=== PATIENT | female | born 1995 | race Caucasian/White ===

== ENCOUNTER 2019-08-10 18:54 | Inpatient (IN) | payer BC ==
[~2019-08-10 18:54] MED LIST: Iopamidol-370 76% 500 ML 1 ML ONE
[2019-08-10 19:29] LABS: Hemoglobin 12.5 g/dL (12.0-16.0); Mean Corpuscular HGB CONC 35.4 g/dL (32.0-36.0); Mean Corpuscular Volume 90.3 fL (78.0-98.0); Mean Platelet Volume 7.7 fL (7.4-10.4); Platelet Count 276 thou/uL (130-400); RBC Distribution Width 11.4 % (11.5-14.5); Red Blood Cell (RBC) Count 3.92 mill/uL (4.20-5.40); White Blood Cell (WBC) Count 27.2 thou/uL (4.8-10.8)
--- NOTE | 2019-08-10 19:33 | RAD ---
Chest one view HISTORY: Dyspnea. FINDINGS: Cardiac silhouette and pulmonary vasculature are unremarkable. Mediastinum is midline. No c onfluent airspace consolidation or evidence of pneumothorax. IMPRESSION: Normal exam.
[2019-08-10 19:49] LABS: ALT (SGPT) 11 U/L (8-55); AST (SGOT) 14 U/L (5-34); Albumin 4.2 g/dL (3.5-5.0); Alkaline Phosphatase 57 U/L (40-110); Anion Gap 15 mmol/L (10-20); BUN (Urea Nitrogen) 4 mg/dL (7.0-18.7); Bilirubin, Total 0.7 mg/dL (0.2-1.2); Calc. Creatinine Clearance 0 mL/min (70-130); Calcium 9.8 mg/dL (7.8-10.44); Carbon Dioxide 19 mmol/L (22-29); Chloride 101 mmol/L (98-107); Estimated GFR-MDRD Greater than 90; Globulin 3.2 g/dL (2.4-3.5); Glucose 89 mg/dL (70-105); Potassium 3.4 mmol/L (3.5-5.1); Protein, Total 7.4 g/dL (6.0-8.3); Sodium 132 mmol/L (136-145)
[2019-08-10 19:53] LABS: Band 16 % (5-11); Lymphocytes 6 % (21-51); MDiff Complete? YES; Monocytes 1 % (0-10); Neutrophil 77 % (42-75); Platelet Morphology Comment Appears Adequate; RBC Morphology Normal
--- NOTE | 2019-08-10 20:13 | CT ---
CT arteriogram chest with IV contrast and 3-D imaging HISTORY: Chest pain. Tachycardia. FINDINGS: There is good contrast opacification of the pulmonary arteries and thoracic aorta with bovi ne origin of the great vessels at the aortic arch. Small amount of residual thymus within the upper mediastinum. No adenopathy. No pleural fluid or pneumothorax. IMPRESSION: No acute abnormalities are demonstrated.
[2019-08-10] MEDS ORDERED: Acetaminophen 500 MG TAB ONE (20:25)
[2019-08-10 21:07] LABS: Free T4 (Free Thyroxine) 0.86 ng/dL (0.70-1.48); Thyroid Stimulating Hormone 0.47 uIU/mL (0.35-4.94)
[2019-08-10 21:33] LABS: Bilirubin Negative (Negative); Blood, Urine Negative (Negative); Clarity Clear (Clear); Glucose, Urine (Dipstick) Normal (Negative); Leukocyte 75 Leu/uL (Negative); Nitrite Negative (Negative); Protein, Urine (Dipstick) Negative (Neg-Trace); RBC/HPF 0-3 HPF (0-3); Squamous Epithelial 0-3 HPF (0-3); Urobilinogen Normal mg/dL (Less than 2); WBC/HPF 0-3 HPF (0-3)
[2019-08-10 21:41] LABS: Amphetamine Not Detected (NotDetected); Bacteria/HPF Rare-Few HPF (None Seen); Barbiturates Screen Not Detected (NotDetected); Benzodiazepine Screen Not Detected (NotDetected); Cocaine Metabolite Screen Not Detected (NotDetected); Medtox Control Line Valid? VALID (VALID); Medtox Reader # READER 4; Methadone Not Detected (NotDetected); Methamphetamine Not Detected (NotDetected); Opiate Screen Not Detected (NotDetected); Oxycodone Screen Not Detected (NotDetected); Phencyclidine (PCP) Not Detected (NotDetected); THC/Cannabinoid Screen Not Detected (NotDetected); Tricyclic Screen Not Detected (NotDetected)
[2019-08-10] MEDS ORDERED: Piperacillin/Tazobactam 4.5 GM VIAL ONE (22:04)
--- NOTE | 2019-08-10 22:51 | ULT ---
Obstetric sonogram HISTORY: Second trimester gestation. Fever. FINDINGS: Single intrauterine gestation in cephalic presentation. Four-chamber heart motion at 165 bp m. Grade 0 placenta is anterior. spine and kidneys are intact as visualized. Cervix is closed and 3.7 cm. No evidence of placental abruption. Measurements are as follows: Biparietal diameter 20 weeks 4 days. Head circumference 19 weeks 4 days. Abdominal circumference 19 weeks 2 days. Femur length 20 weeks 4 days. Estimated date of delivery based on today's sonogram 12/28/2019. Hadlock 97 percentile. IMPRESSION: Single intrauterine gestation. Estimated gestational age 20 weeks 0 days. No abnormalitie s are demonstrated.
--- NOTE | 2019-08-10 23:00 | HP ---
TIME: 2224 LOCATION: ER bed 8. TIME OF EVALUATION: About 2204 until 2219. REASON FOR ADMISSION: Fever of unknown origin/possible early sepsis. This is a patient of Dr. Maradiaga. HISTORY OF PRESENT ILLNESS: This is a 23-year-old , G1, P0, at 18 weeks and 5 days by her EDC, who states that she has been feeling some on and off chest pain for most of the day with some shortness of breath. She came in today because of increased chest discomfort. I was called because the ER workup was negative, except for a white blood cell count of 27, with bandemia. On admission to the ER, her temperature was 100.4, but her heart rate initially was 160 before IV hydration. She had a CT angio which was negative. Her cardiac enzymes are negative. Chest x-ray is negative. Troponin is negative. Her BNP is normal. She also has urine, which is unremarkable, except for some ketones. Her lactate on admission was 2.7. Flu swab was also checked and is negative. Chest x-ray is negative. She denies any complications at this time. She denies a history of autoimmune conditions and there is no family history of lupus or of similar conditions. OB HISTORY: She is G1, P0. ALLERGIES: CODEINE. 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 PAST MEDICAL HISTORY: Otherwise negative. PHYSICAL EXAMINATION: VITAL SIGNS: Her heart rate is now 130, O2 saturation about 98%. She is currently afebrile, but this is after some IV fluids. GENERAL: She looks uncomfortable but is in no acute distress or dyspnea. ABDOMEN: Soft and nontender on my exam. There is no uterine tenderness. PELVIC EXAM: Currently deferred. EXTREMITIES: There are no palpable cords in the lower extremities. CHEST: Otherwise clear. DATA: I was present during the OB ultrasound, which was being performed, which shows grossly normal fluid, and normal closed and long cervix, and good activity. Final report is pending. ASSESSMENT: A 23-year-old G1, P0, at 18 weeks and 5 days with FUO (fever of unknown origin). Lactate is slightly elevated at 2.7. TSH was negative as was urine toxicology. PLAN: 1. Due to the fever of unknown origin of 100.4 on admission, an elevated lactate, with leukocytosis with initial white blood cell count of 27, we are admitting her per protocol for IV Zosyn and vanc. 2. No evidence of PE or acute pulmonary process. 3. We are awaiting a set of blood cultures before antibiotics. 4. If her tachycardia does not resolve, we will consider Cardiology consult after at least 24 hours of antibiotic. 5. Her EKG shows sinus tach with no abnormal changes. 6. No evidence of flu as flu swab is negative. 7. If her temperature does not decrease, we will have to consider autoimmune/possible connective tissue new diagnosis, but we will await resolution before we go down that avenue. 8. Dr. Maradiaga has been notified by me and we will assume care for now. Job ID: [id number]
--- NOTE | 2019-08-10 23:00 | PDOC.EVN ---
Event Note - Event Note Event Note: During OB sono informal sweep of the RUQ revealed normal GB image
[2019-08-10] MEDS ORDERED: Ketorolac Tromethamine 30 MG/ML VIAL ONE (23:03)
--- NOTE | 2019-08-10 23:36 | PRG ---
DATE OF SERVICE: 08/10/2019 SUBJECTIVE: In brief, this is just a clarification on my H and P. I did evaluate the patient at bedside and reviewed in detail the workup that has been done so far with the patient and reviewed that care with the patient's mother who was at bedside. I discussed that we would give her 24-48 hours of antibiotics and if she is not clinically better. We will have to pursue other possibilities like viral infections, autoimmune conditions, etc. I have just ordered an MANOHAR screen just to get that in process. Blood cultures are still pending and antibiotics will be begun shortly. Right now, I have a fever without a clear source. I have also examined the patient's abdomen and trunk and I do not see any abnormal lesions. I do not suspect chorio as her uterus is soft and nontender. Job ID: [id number]
[2019-08-11] LABS: Lactic Acid 1.5 mmol/L (0.5-2.2)
[2019-08-11] MEDS: Lactated Ringer's 1,000 ML IV SCH ×4 (01:15→21:49)
[2019-08-11 02:41] VITALS: BMI 32.3
[2019-08-11] MEDS: Piperacillin/Tazobactam 3.375 GM in Sodium Chloride 0.9% 100 ML IVPB SCH ×3 (04:38→18:14)
[2019-08-11] MEDS: Acetaminophen 500 MG TAB PO PRN ×3 (04:45→18:14)
[2019-08-11] MEDS ORDERED: Vancomycin HCl 1 GM in Premix Bag 1 BAG IVPB SCH (06:00)
--- NOTE | 2019-08-11 06:33 | PDOC.EVN ---
Event Note - Event Note Event Note: HD1 Admit 08/10/19 Patient sleeping called for maternal Temp of 102.8 at 0500 Respiratory panel pending I have a repeat CBC pending for this AM. Blood cultures pending. ABX: Tania and Nikunj for FUO/sepsis protocol. Continue ABX for now. If not better after 24 hrs-48 hrs of ABX, consider ID evmarietta. She does have a partner who developed similar SXS this AM as well...his temp was 103 in the ER but he was not seen by his choice.
[2019-08-11 09:09] LABS: Hemoglobin 11.1 g/dL (12.0-16.0); Mean Corpuscular HGB CONC 35.8 g/dL (32.0-36.0); Mean Corpuscular Hemoglobin 32.7 pg (27.0-31.0); Mean Corpuscular Volume 91.5 fL (78.0-98.0); Mean Platelet Volume 7.9 fL (7.4-10.4); Platelet Count 207 thou/uL (130-400); RBC Distribution Width 11.4 % (11.5-14.5); Red Blood Cell (RBC) Count 3.39 mill/uL (4.20-5.40)
--- NOTE | 2019-08-11 09:14 | PDOC.EVN ---
Event Note - Event Note Event Note: 23 yo G1 @18.5wks admitted for fever without a source, on vanc and zosyn with blood and urine cx pending. CTA, cxr, flu all negative. Abd sono negative for acute cholecystitis. Picture not consistent with appendicitis or chorio. Respiratory viral panel negative. Fevered this morning to 103F. Down to 101F after tylenol. Pt still currently tachycardic to 120s. Alert and oriented x 3. No murmur heard on exam. Added monospot and strep swab this morning. Will continue broad spectrum abx and fluid resuscitation. Consider ID consult if blood cx negative. Addendum - Attending - Attending Attestation Date/Time: 08/11/1917 I personally evaluated the patient and discussed the management with Dr. Almanza. Discussed in detail with Dr. Gannon examined with him. 23 yo WF at 18 weeks with FUO. Denies recent travel. SO has fever as well. Workup so far is negative with BC pending. Abdominal exam is benign and not c/w chorioamnionitis. Continue on Zosyn and Vancomycin for now. I agree with the History, Examination, Assessment and Plan documented above.
[2019-08-11 09:16] LABS: MONO NEGATIVE CONTROL ZONE White (Negative) (White); MONO POSITIVE CONTROL Pink Line (Positive) (PINK/RED); Mononucleosis NEGATIVE (NEGATIVE)
[2019-08-11 09:35] LABS: Band 5 % (5-11); Lymphocytes 9 % (21-51); MDiff Complete? YES; Monocytes 4 % (0-10); Neutrophil 82 % (42-75); Platelet Morphology Comment Appears Adequate; Vacuoles SLIGHT
[2019-08-11] MEDS: Vancomycin HCl 1 GM in Premix Bag 1 BAG IVPB SCH ×2 (10:05→21:49)
[2019-08-11] MEDS: Prenatal Vitamin 1 TAB PO SCH (10:05)
--- NOTE | 2019-08-11 12:08 | PDOC.EVN ---
Event Note - Event Note Event Note: Fever to 103.3F. Monospot negative. Group A strep swab negative. A&Ox3. However , considering an LP. Abdominal exam, pulm exam, and cardiac exam benign except for tachycardia. Continue vanc/zosyn. Blood and urine cx pending. Consulted ID. Will await recommendations. Tylenol prn fever. Addendum - Attending - Attending Attestation Date/Time: 08/11/19 1216 I personally evaluated the patient and discussed the management with Dr. Almanza. CTSP with temp to 103+. [place] and strep screens are negative. Tylenol and fluid bolus ordered. I spoke with Dr. Ragland with ID personally, he will see the pt. this afternoon. I agree with the History, Examination, Assessment and Plan documented above.
[2019-08-11] MEDS ORDERED: Lactated Ringer's 1,000 ML IV SCH (12:45)
--- NOTE | 2019-08-11 23:57 | CON ---
DATE OF CONSULTATION: 08/11/2019 REASON FOR CONSULTATION: Chest pain with fever. HISTORY OF PRESENT ILLNESS: A 23-year-old, G1, P0 at 18 weeks of the delivery date, [place] and lives with her fiance and apparently over the past 48 hours, both have developed fever with chest pain associated with some dyspnea, some headaches when the temperatures go up. No sore throat or dental pain. No back pain. The chest pain is localized to the central lower area of the chest. It seems to increase with deep breathing and also with changing positions of the body for example sitting up or turning from the left to the right decubitus and so forth. The abdomen is not tender. There is no diarrhea or genitourinary symptoms. No joint symptoms or skin disorder. No neurological symptoms. MEDICAL HISTORY: Otherwise negative. This is her first gestation. ALLERGIES: CODEINE, MOSTLY GASTROINTESTINAL SYMPTOMS. FAMILY HISTORY: The fifuentese has been sick with similar febrile illness, fairly similar symptoms with the same temporal onset. He was documented to have temperature of 103 in one of the local ERs and tested negative for influenza A and B. CURRENT MEDICATIONS: 1. Zosyn. 2. Vancomycin. 3. P.r.n. medications. PHYSICAL EXAMINATION: VITAL SIGNS: T-max 103 earlier today, she is now 101.2. Blood pressure 113/58, pulse 97, respirations 14, O2 saturation 100. SKIN: Normal. The patient has peripheral IV access and she is voiding in the toilet. No lymphadenopathy. HEENT: Ocular movements conjugate. Oral cavity normal. NECK: Supple. LUNGS: Symmetric. Clear breath sounds. HEART: S1 and S2 regular rate with loud S4. No murmurs. No tenderness on palpation of the sternum or chest area. No abdominal pain. No distention. No organomegaly or bladder distention. No ascites. No joint inflammatory activity. Moves extremities equally. Cognitive function appears to be intact. The patient appears to be apprehensive. LABORATORY DATA: White cell count is 27, down to 22 at this time. Hemoglobin 11, platelets 207,000 with 82% neutrophils, bands were 16 on admission and now down to 5%, 9% lymphocytes, 4% monocytes. Peripheral smear with smudge cells. Platelet morphology appears normal. Chemistry; sodium 132, creatinine 0.57. Liver profile normal. Albumin 4.2. TSH 0.47. Urinalysis with 0-3 wbc's, protein negative, negative toxicology, serology with negative mono screen. CT angiogram of the chest, no abnormalities noted. Chest x-ray, normal exam. ASSESSMENT: 1. Gestation 18 weeks. 2. Acute onset of chest pain with fever, which prompted admission. Similar symptoms in the fiance documented in the same setting, temperature up to 103, respiratory virus PCR panel negative. Blood cultures are pending. DISCUSSION: The differential diagnosis includes pericarditis versus Bornholm syndrome secondary to Coxsackie A or B, early pneumonia which has not yet been identified on radiological studies appears to be less likely in view of the normal clinical exam. Bacterial pericarditis, bacteremia from a not yet disclosed site , intraabdominal inflammatory process appears to be less likely. Pancreatitis is unlikely. Esophageal process also not likely in view of the familial distribution of the symptoms and lack of pain upon swallowing. An autoimmune process is unlikely in view of similar syndrome in her fiance. We will check echocardiogram. EKG has been ordered, but not performed yet. Continue antimicrobial therapy. Check Coxsackie antibodies and EBV serology, as well as CMV serology. Job ID: [id number] [facility]
[2019-08-11] MEDS ORDERED: Piperacillin/Tazobactam 3.375 GM in Sodium Chloride 0.9% 100 ML IVPB SCH (23:59)
[2019-08-12] MEDS: Piperacillin/Tazobactam 3.375 GM in Sodium Chloride 0.9% 100 ML IVPB SCH ×3 (02:21→15:03)
[2019-08-12] MEDS: Acetaminophen 500 MG TAB PO PRN (05:00)
[2019-08-12 05:47] LABS: #Eosinphils 0.1 thou/uL (0.0-0.7); #Lymphocytes 1.5 thou/uL (1.20-3.40); #Monocytes 0.8 thou/uL (0.11-0.59); #Neutrophils 14.1 thou/uL (1.40-6.50); %Basophils 0.2 % (0.0-1.0); %Eosinophils 0.4 % (0.0-10.0); %Lymphocytes 8.8 % (21.0-51.0); %Monocytes 4.6 % (0.0-10.0); %Neutrophils 85.9 % (42.0-75.0); Hemoglobin 10.3 g/dL (12.0-16.0); Mean Corpuscular HGB CONC 35.6 g/dL (32.0-36.0); Mean Corpuscular Hemoglobin 33.1 pg (27.0-31.0); Mean Corpuscular Volume 92.8 fL (78.0-98.0); Mean Platelet Volume 7.7 fL (7.4-10.4); Platelet Count 222 thou/uL (130-400); RBC Distribution Width 11.7 % (11.5-14.5); Red Blood Cell (RBC) Count 3.12 mill/uL (4.20-5.40); White Blood Cell (WBC) Count 16.4 thou/uL (4.8-10.8)
--- NOTE | 2019-08-12 06:34 | PDOC.EVN ---
Event Note - Event Note Event Note: 19 weeks. Zosyn/Vanc #2 Feeling some better this AM. Dpaq=861/ Tn= 99.1 Exam is unchanged, nonfocal. Consult by Dr. Ragland greatly appreciated. ECHO, enterovirus and Coxsackie ordered. Cont. present ABX.
[2019-08-12 08:37] LABS: Ref Lab Test Ordered COXSACKIE ABS; Reference Lab Name LABCORP
[2019-08-12] MEDS ORDERED: Sodium Chloride 0.9% 10 ML ONE (09:21)
[2019-08-12] MEDS: Vancomycin HCl 1 GM in Premix Bag 1 BAG IVPB SCH (09:56)
[2019-08-12] MEDS: Prenatal Vitamin 1 TAB PO SCH (09:56)
--- NOTE | 2019-08-12 13:01 | PDOC.EVN ---
Event Note - Event Note Event Note: Patient in shower this AM when I went to see her. I discussed case with her RN. AM CBC with decreasing WBC. ABX still in use. ID following. Echo for today
[2019-08-12] MEDS: Lactated Ringer's 1,000 ML IV SCH ×3 (14:36→22:06)
--- NOTE | 2019-08-12 15:32 | PRG ---
DATE OF SERVICE: 08/12/2019 SUBJECTIVE: Feeling better, almost back to normal. A little bit of cough, but no sputum production. Eating well. No vomiting. No diarrhea. No abdominal pain. OBJECTIVE: VITAL SIGNS: Temperature is pretty much normal now. Other vital signs are normal. LUNGS: Clear. HEART: S1 and S2. Regular rate. ABDOMEN: Soft, not distended or tender. LABORATORY DATA: White cell count 16.4, hemoglobin 10, and platelets 222 with 85% neutrophils. The echocardiogram did not show any major abnormalities. Lactic acid 1.5. All the cultures are negative thus far. ASSESSMENT AND DISCUSSION: Eighteen weeks gestation with acute onset of myalgias, chest pain, and fever, which also were present in her fiancee, suggestive of a viral illness. Clinical improvement with negative cultures thus far and we will go ahead and discontinue antimicrobial therapy. If she remains stable, then consider discharge planning. Job ID: [id number]
[2019-08-12 17:50] LABS: ANA Symphony (Qualitative) Negative (Negative); ANA Symphony (Quantitative) 0.2 Ratio (< 0.7 Negative); dsDNA IgG Antibody Less than 0.5 IU/mL (<10 Negative)
--- NOTE | 2019-08-12 19:27 | PDOC.EVN ---
Event Note - Event Note Event Note: Lab check: Blood CX NGTD; MANOHAR screen was negative Currently afebrile and pulse decreasing towards normal
[2019-08-13] MEDS: Lactated Ringer's 1,000 ML IV SCH (05:24)
[2019-08-13 06:05] LABS: #Eosinphils 0.3 thou/uL (0.0-0.7); #Monocytes 0.8 thou/uL (0.11-0.59); #Neutrophils 7.9 thou/uL (1.40-6.50); %Basophils 0.4 % (0.0-1.0); %Eosinophils 2.8 % (0.0-10.0); %Lymphocytes 18.1 % (21.0-51.0); %Neutrophils 71.7 % (42.0-75.0); Hemoglobin 10.6 g/dL (12.0-16.0); Mean Corpuscular HGB CONC 35.2 g/dL (32.0-36.0); Mean Corpuscular Hemoglobin 32.7 pg (27.0-31.0); Mean Platelet Volume 7.4 fL (7.4-10.4); Platelet Count 213 thou/uL (130-400); RBC Distribution Width 11.6 % (11.5-14.5); Red Blood Cell (RBC) Count 3.23 mill/uL (4.20-5.40)
--- NOTE | 2019-08-13 06:51 | PDOC.HOSPP ---
- Subjective Encounter Date: 08/13/19 (HD3) Encounter Time: 07:00 Subjective: Feels better - Objective Vital Signs & Weight: Vital Signs (12 hours) Temp Pulse Resp BP Pulse Ox 08/13/19 04:22 98.0 F 89 22 H 120/67 96 08/13/19 00:24 98.0 F 95 24 H 110/66 95 08/12/19 20:13 98.1 F 103 H 24 H 119/68 97 Weight Weight 188 lb 3.2 oz I&O: 08/11/19 08/12/19 08/13/19 06:59 06:59 06:59 Intake Total 834 4518 1800 Output Total 975 8985 1500 Balance -141 2043 300 Result Diagrams: 08/13/19 05:50 08/10/19 19:23 Radiology Reviewed by me: Yes Hospitalist ROS - Medication Medications: Active Medications Generic Name Dose Route Start Last Admin Trade Name Freq PRN Reason Stop Dose Admin Acetaminophen 1,000 mg 08/10/19 22:02 08/12/19 05:00 Tylenol PO 1,000 mg Q6H PRN Administration Moderate to Severe Pain (6-10) Lactated Ringer's 1,000 mls @ 125 mls/hr 08/10/19 22:15 08/13/19 05:24 Lactated Ringer's IV Not Given .Q8H JESSICA Multivit/Folic Acid/Iron 1 tab 08/11/19 09:00 08/12/19 09:56 Vitamin PO 1 tab DAILY JESSICA Administration Now off Zosyn and vanc since yesterday PM - Exam Neck: supple Heart: no murmur Gastrointestinal: soft Extremities: no cyanosis, no clubbing, no edema Neurological: no focal deficits Musculoskeletal: normal tone Psychiatric: normal affect Hosp A/P (1) Second trimester Code(s): Z34.92 - ENCNTR FOR SUPRVSN OF NORMAL PREG, UNSP, SECOND TRIMESTER Status: Acute (2) Fever Code(s): R50.9 - FEVER, UNSPECIFIED Status: Acute - Plan clinically improved. Suspect viral. all labs and W/U negative...WBC negative. Likely home to with outpatient follow up
--- NOTE | 2019-08-13 07:11 | PDOC.EVN ---
Event Note - Event Note Event Note: Patient seen at bedside. Clinically well. OK for DC to home today. See dictation done.
--- NOTE | 2019-08-13 07:42 | DIS ---
DATE OF ADMISSION: 08/11/2019 DATE OF DISCHARGE: 08/13/2019 ADMISSION DIAGNOSES: 1. 18- to 19-week . 2. Primigravida. 3. Fever of unknown origin. 4. Suspected viral illness. PROCEDURE PERFORMED: 1. Obstetrical ultrasound. 2. Maternal cardiac echocardiogram. 3. Blood cultures. 4. Urine culture. 5. Monospot testing. 6. Coxsackie virus testing (pending). 7. CT angio of the chest. HOSPITAL COURSE: In brief, this patient is a 23-year-old primigravida, who was admitted by me on the with high fever with a T-max of close to 103. Her partner had similar symptoms. She was admitted for fever of unknown origin with no clinical evidence of chorioamnionitis. She was 18 weeks and 5 days on admission. She was placed on vancomycin and Zosyn for broad coverage, and Dr. Ragalnd was consulted as she continued to have some occasional high temperatures on hospital day 1. Dr. Ragland recommended testing for Coxsackie virus. It is important to note that due to the chest pain that she initially presented with she even had a CT angio, which was negative. The patient defervesced and all the workup was negative including blood cultures and urine cultures. It was felt by ID that the patient had a viral illness, possible Coxsackie. Decision was made to send her home on August 13, 2019, after I evaluated the patient at bedside. Next, on my bedside note, I find the patient to be in no clinical distress with no dyspnea. She is looking well. There is no uterine tenderness on my abdominal exam. DISCHARGE MEDICATIONS: Include none. FOLLOWUP: She is to follow up with Dr. Mardaiaga to check the Coxsackie virus results, and she has a followup on . Job ID: [id number]
[2019-08-13 07:44] VITALS: BP 137/83; TEMP 98.6
--- NOTE | 2019-08-13 08:09 | PDOC.EVN ---
Event Note - Event Note Event Note: Echo to follow up results as outpatient as clinically well
== END 2019-08-13 09:38 | disposition home or self-care (01) | DRG 833 ==
LOC: ERS 18:54 → 3SW 08-11 00:41
PROVIDERS: ADMIT Obstetrics & Gynecology; ATTEND Obstetrics & Gynecology
DX: O98.512 Other viral diseases complicating pregnancy, second trimester (principal); B34.9 Viral infection, unspecified; Z3A.18 18 weeks gestation of pregnancy; O26.892 Other specified pregnancy related conditions, second trimester; M79.10 Myalgia, unspecified site; R07.9 Chest pain, unspecified; B97.11 Coxsackievirus as the cause of diseases classified elsewhere
CPT/HCPCS: 36415; 71045; 71275; 76805; 80053; 80306; 81003; 81015; 83605; 83880; 84439; 84443; 84481; 84484; 85025; 86038; 86225; 86308; 87040; 87081; 87086; 87430; 87498; 87633; 87804; 93005; 93306; J1885; J2543; J3370; J3490; Q9967

== ENCOUNTER 2019-12-04 11:20 | Day surgery (SDC) | payer BC ==
[2019-12-04 11:48] VITALS: BMI 35.2
[2019-12-04] MEDS ORDERED: hydrALAZINE 20 MG/ML VIAL SLOW IVP PRN (11:58)
--- NOTE | 2019-12-04 12:49 | ULT ---
US Biophysical Profile: 12/04/2019 12:00 PM CLINICAL HISTORY: Nonreactive stress test. COMPARISON: None. FINDINGS: heart rate: 149 bpm. ANTONIO: 13.2 cm Biophysical profile: 8 of 8 IMPRESSION: Normal biophysical profile
--- NOTE | 2019-12-04 13:06 | PRG ---
DATE OF SERVICE: 12/04/2019 PRIMARY OB: Dr. Mimi Maradiaga. CHIEF COMPLAINT: Decreased movement. HISTORY OF PRESENT ILLNESS: The patient is a 23-year-old, G1, P0 female with an intrauterine at 35 weeks and 2 days, presenting to Labor and Delivery with decreased movement since late yesterday evening. The patient concerns as the baby has not been moving as much in general. She denies any medical problems. She denies any complications with this . She is scheduled to see Dr. Maradiaga on the , in about 9 days. The patient denies any fever, cough, headache, chest pain, shortness of breath, nausea, vomiting, diarrhea, constipation, hip problems, knee problems, muscle weakness. She denies vaginal bleeding, leakage of fluid, urinary urgency or frequency. PAST MEDICAL HISTORY: Negative. PAST SURGICAL HISTORY: She has had multiple knee surgeries in the distant past. ALLERGIES: NO KNOWN DRUG ALLERGIES. MEDICATIONS: vitamins. OB LABS: Unavailable at time of dictation. REVIEW OF SYSTEMS: Per HPI. SOCIAL HISTORY: Denies drug, alcohol, or tobacco use. PHYSICAL EXAMINATION: VITAL SIGNS: Blood pressure is 131/76, heart rate of 107, respiratory rate of 18, saturating 97% to 98% on room air, temperature 98. GENERAL: She appears to be in no acute distress. She is alert, oriented, cooperative, and pleasant to interact with. HEENT: Head is normocephalic, atraumatic. LUNGS: Clear to auscultation bilaterally. HEART: Has a regular rate and rhythm. ABDOMEN: Gravid, soft, nontender. EXTREMITIES: Nontender with minimal edema that is symmetrical. PELVIS: Cervical exam has been deferred. heart tracing shows the fetus with a baseline in the 150s with moderate long-term variability and has one 15 x 15 acceleration. Tocometer shows a little bit irritability, but no regular contraction pattern. Bedside ultrasound was performed for BPP which was 8/8 and ANTONIO of 13. ASSESSMENT AND PLAN: The patient is a 23-year-old female presenting for decreased movement. Reassurance has been provided with a reassuring BPP of 8/8 and normal fluid. She has been discharged home with instructions to follow up with her primary OB as scheduled. Job ID: [id number]
== END 2019-12-04 12:41 | disposition home or self-care (01) ==
LOC: L&D/OP 11:20
PROVIDERS: ATTEND Obstetrics & Gynecology
DX: O36.8130 Decreased fetal movements, third trimester, not applicable or unspecified (principal); Z3A.35 35 weeks gestation of pregnancy
CPT/HCPCS: 76819; 99281